=== PATIENT | male | born 1945 | race Caucasian/White ===

== ENCOUNTER 2024-11-13 16:59 | Inpatient (IN) | payer MEDICARE, BC, SELFPAY ==
[2024-11-13] VITALS (11 sets, daily range): BP systolic 113–146; BP diastolic 74–98; PULSE 71–102; RESP 16–32; TEMP 36.8–36.9; O2SAT 93–99; BMI 37.2
--- NOTE | 2024-11-13 17:20 | EKG_ITS ---
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
--- NOTE | 2024-11-13 17:20 | XR_ITS ---
Examination: AP chest single view Technique one AP portable upright chest single view Exam date and time: November 13, 2024 1803 hrs. Comparison October 31, 2011 Indications: Onset SOB today. Findings: Mild heart failure Mild to moderate enlargement cardiac contour CABG Prominent vascular congestion Consider superimposed pneumonia in the right mid and lower lung zone Impression: Mild heart failure Consider superimposed pneumonia in the right lung
--- NOTE | 2024-11-13 17:21 | EDNOTE_ITS ---
ED General RME/HPI General Chief complaint: Weakness Stated complaint: SWELLING TO LOWER EXTREMITIES Time Seen by Provider: 11/13/24 17:12 Arrival date/time: 11/13/24 16:59 RME / HPI RME / HPI narrative: 79-year-old male patient with significant history of congestive heart failure, hypertension, CAD, multiple cardiac stents, status post CABG, was sent to us by Dr. Mason, radio division lieutenant, for worsening lower extremity edema. Patient noticed worsening lower extremity edema at this time going up to the abdomen, and gained weight of more than 40 pounds of weight in couple of weeks. Patient is currently taking Lasix and new unrecalled medication for diuresis. However is not working. Saw radio division lieutenant 3 days ago tried new medication for water pill however still not working. Patient called Dr. Mason yesterday and was advised to come to the emergency room for further management and IV diuresis. Patient also complained of shortness of breath, using oxygen in the facility. Also complained of orthopnea and dyspnea on exertion. Denies any fever. Denies any chest pain. Related Data Home Medications ?Medication ?Instructions ?Recorded ?Confirmed clopidogrel 75 mg tablet (Plavix) 75 mg PO QDAY #0 tabs 01/23/16 11/13/24 apixaban 5 mg tablet (Eliquis) 5 mg PO BID 11/13/24 11/13/24 aspirin 81 mg tablet 81 mg PO QDAY 11/13/24 11/13/24 carvedilol 6.25 mg tablet (Coreg) 6.25 mg PO BID 11/13/24 11/13/24 clopidogrel 75 mg tablet (Plavix) 75 mg PO QDAY 11/13/24 11/13/24 digoxin 125 mcg (0.125 mg) tablet 125 mcg PO QDAY 11/13/24 11/13/24 folic acid 1 mg tablet 1 mg PO QDAY 11/13/24 11/13/24 furosemide 80 mg tablet (Lasix) 80 mg PO BID 11/13/24 11/13/24 oxycodone-acetaminophen 10 mg-325 1 tab PO Q6H PRN Pain 11/13/24 11/13/24 mg tablet potassium chloride 20 mEq oral 20 meq PO BID 11/13/24 11/13/24 packet sennosides 8.6 mg tablet (senna) 8.6 mg PO BID PRN Constipation 11/13/24 11/13/24 Allergies Allergy/AdvReac Type Severity Reaction Status Date / Time Penicillins Allergy Intermediate Verified 10/31/11 22:14 Review of Systems Review of Systems Narrative Review of Systems: Review of system reviewed and within normal limits except mentioned in HPI ED Exam Narrative Physical exam: VITAL SIGNS: Reviewed. GENERAL APPEARANCE: Alert and interactive, follows commands, no acute distress, HEAD AND FACE: Non-traumatic. ENT: PERRL, pink conjunctivitis, eyelid no trauma, Mucous membrane moist. NECK: Supple, nontender, no nuchal rigidity. CHEST: No tenderness, no crepitus, no paradoxical movement, no retractions. LUNGS: Clear, well ventilated, symmetric, no rales, no wheezing, no ronchi, no stridor, good breath sounds bilaterally. HEART: Regular rate, regular rhythm, no murmur, no gallops. ABDOMEN: Soft, positive bowel sounds, nondistended, no guarding, nontender, no rebound, no masses,+ mid abdomen edema noted also RECTAL: Deferred. GENITAL: Deferred. NEUROLOGICAL: Gross motor function intact sensory function intact, Appropriate for age. MUSCULOSKELETAL: low back nontender, full range of motion. EXTREMITIES: +3 bilateral lower extremity edema full range of motion. Right lower foot with dressing SKIN: Color pink, dry, no rash, no lacerations, no abrasions, no contusions. LYMPHATICS: Deferred. Course Quality Measures none Orders Category Date Time Status COVID-19 Screening Questionnaire NOW Care 11/13/24 19:48 Active Decision to Admit X1 Care 11/13/24 19:47 Active EKG (ED ONLY) *Do not use* NOW Care 11/13/24 17:21 Completed Consult to Nephrology Stat Cons 11/13/24 17:49 Ordered EKG (ED Only) Stat Exams 11/13/24 17:20 Draft XR chest 1V Stat Exams 11/13/24 17:20 Completed B-Type Natriuretic Peptide Stat Lab 11/13/24 17:32 Completed CBC Stat Lab 11/13/24 17:32 Completed Comprehensive Metabolic Panel Stat Lab 11/13/24 17:32 Completed Partial Thromboplastin Time Stat Lab 11/13/24 17:32 Completed Prothrombin Time with INR Stat Lab 11/13/24 17:32 Completed Troponin I Stat Lab 11/13/24 17:32 Completed Urinalysis, C/S if Indicated Stat Lab 11/13/24 17:46 Completed Container,Empty 50 ml [Empty Container Bag 50 ml] 1 bag Med 11/13/24 17:48 Active Bumetanide Inj [Bumex Inj] 20 mg IV 1 mg/hr Vital Signs Vital signs: Vital Signs Temperature 98.2 F 11/13/24 17:35 Pulse Rate 102 H 11/13/24 17:35 Respiratory Rate 16 11/13/24 17:35 Blood Pressure 120/98 H 11/13/24 17:35 Pulse Oximetry (%) 94 L 11/13/24 17:35 Oxygen Delivery Method Room Air 11/13/24 17:35 Oxygen Flow Rate 2 11/13/24 17:35 Fraction of Inspired Oxygen 98 11/13/24 17:35 [facility] Patient data External records reviewed:: None Clinical information provided by:: patient Social determinants that could affect healthcare access:: none Patient has the following chronic illnesses:: Congestive heart failure hypertension, CAD multiple stents status post CABG How is presenting disease/condition affected by chronic disease/condition?: e xacerbated by Evaluation data The following diagnostics were reviewed and interpreted by me:: lab results, radiology exam(s) and EKG tracing(s) Lab and/or radiology exams considered but not ordered:: None Interpretation Summary: EKG showed A-fib, ventricular rate of 87 bpm, no ST segment elevation depression noted. Chest x-ray showed mild heart failure, with possible superimposed pneumonia. Laboratory workup all came back unremarkable except for elevated BNP of 1350, creatinine was also noted to be slightly elevated 1.4 BUN of 30. Medications Medications considered but not ordered:: None Medication administrations:: Medication Administration History Bumetanide 20 mg/ IV (Miscellaneous Supplies) 80 mls @ 4 mls/hr IV .Q20H MARIO Stop: 11/14/24 13:47 Last Admin: 11/13/24 18:18 Dose: 1 mg/hr, 4 mls/hr Documented By: JACKSON Bumex IV drip Consultations Consultation(s) initiated? (list below): Yes Consultation #1 (Physician, Specialty, Details): Dr. Mason, radio division lieutenant, thank you Dr. Mason Diagnosis Differential Diagnosis ED Complaint MDM: Congestive heart failure, exacerbation, pneumonia, shortness of breath, lym Most likely diagnosis given after review of the tests above:: Exacerbation of congestive heart failure Admission Indicated Admission indicated?: indicated Explain why admission is indicated or not indicated:: Patient is to be admitted for further management Admission Request Was there a request for admission?: Yes Admission Attestation Admission request attestation: Discussed case with [resident Dr. El] from Hospitalist service regarding admission. Discussed patients ED course, exam findings, labs, and radiology results. The Hospitalist [agrees] to accept the patient for admission. Disposition Plan Disposition Plan: Admit Medical Decision Making MDM Narrative MDM Narrative: 79-year-old male patient with significant history of congestive heart failure, hypertension, CAD, multiple cardiac stents, status post CABG, was sent to us by Dr. Mason, radio division lieutenant, for worsening lower extremity edema. Patient noticed worsening lower extremity edema at this time going up to the abdomen, and gained weight of more than 40 pounds of weight in couple of weeks. Patient is currently taking Lasix and new unrecalled medication for diuresis. However is not working. Saw radio division lieutenant 3 days ago tried new medication for water pill however still not working. Patient called Dr. Mason yesterday and was advised to come to the emergency room for further management and IV diuresis. Patient also complained of shortness of breath, using oxygen in the facility. Also complained of orthopnea and dyspnea on exertion. Denies any fever. Denies any chest pain. I spoke with Dr. Mason, patient's radio division lieutenant, who told me to admit the patient under hospitalist, comanagement with him, and start IV Bumex. Differential Diagnosis Differential Diagnosis: Congestive heart failure, exacerbation, pneumonia, shortness of breath, lym Lab Data 11/13/24 17:32 11/13/24 17:32 Labs: Lab Results 11/13/24 11/13/24 Range/Units 17:32 17:46 WBC 6.8 (3.8-10.6) Thou/mm3 RBC 4.39 L (4.50-5.90) Miln/mm3 Hgb 11.8 L (13.5-16.0) g/dL Hct 37.3 L (41.0-53.0) % MCV 85 (80-100) fL MCH 26.9 (25.0-35.0) pg MCHC 31.6 (31.0-37.0) g/dl RDW Std Deviation 60.1 H (35.1-43.9) fL Plt Count 196 (140-440) Thou/mm3 Neut % (Auto) 69 (37-80) % Lymph % (Auto) 17 (10-50) % [place] % (Auto) 10 (0-12) % Eos % (Auto) 4 (0-10) % Baso % (Auto) 1 (0-2.5) % Neut # (Auto) 4.6 (1.8-7.7) Thou/mm3 Lymph # (Auto) 1.1 (1.0-4.8) Thou/mm3 [place] # (Auto) 0.7 (0.0-0.8) Thou/mm3 Eos # (Auto) 0.3 (0.0-0.5) Thou/mm3 Baso # (Auto) 0.1 (0.0-0.2) Thou/mm3 Immature Gran # (Auto) 0.02 H (0.00-0.00) Thou/mm3 Absolute Nucleated RBC 0.00 (0.00-0.00) Thou/mm3 Immature Gran % 0 (0-0) % Nucleated RBC % 0 (0) /100 WBC PT 14.3 H (9.0-12.2) Seconds INR 1.3 (0.9-1.3) APTT 39.8 H (22.0-36.0) Seconds Sodium 135 L (136-145) mMol/L Potassium 4.0 (3.4-5.1) mMol/L Chloride 100 (98-107) mMol/L Carbon Dioxide 24.4 (20.0-31.0) mMol/L Anion Gap 11 (7-16) BUN 30 H (9-23) mg/dL Creatinine 1.4 H (0.6-1.3) mg/dL Estim Creat Clear Calc 53.4 L (>60) mL/min eGFR 52 L (60 - ) See Note BUN/Creatinine Ratio 21 H (12-20) Ratio Glucose 156 H (74-106) mg/dL Calculated Osmolality 279 (275-295) Calcium 8.6 (8.3-10.6) mg/dL Corrected Calcium 8.7 (8.5-10.1) mg/dL Total Bilirubin 0.6 (0.3-1.2) mg/dL AST 20 (0-34) U/L ALT 11 (10-49) U/L Alkaline Phosphatase 95 (46-116) U/L Troponin I 0.035 (0.0-0.045) ng/mL B-Natriuretic Peptide 1350 H* (0-100) pg/mL Total Protein 6.1 (5.7-8.2) gm/dL Albumin 3.9 (3.4-4.8) gm/dL Globulin 2.2 L (2.3-3.5) gm/dL Albumin/Globulin Ratio 1.8 (1.2-2.2) Ur Collection Type Clean Catch Urine Color Lt-Green A (Lt Yel-Yel) Urine Clarity Turbid A (Clear/Hazy) Urine pH 5.5 (5.0-7.0) Ur Specific Lucas 1.021 (1.001-1.035) Urine Protein Negative (Neg - Trace) Urine Glucose (UA) 4+ A (Negative) Urine Ketones Negative (Negative) Urine Blood Negative (Negative) Urine Nitrite Negative (Negative) Urine Bilirubin Negative (Negative) Urine Urobilinogen (Auto) Negative (0.0-1.0) mg/dL Ur Leukocyte Esterase Negative (Negative) Urine RBC 3 (0-3) /hpf Urine WBC 2 (0-5) /hpf Ur Squamous Epith Cells 0 (0-5) /hpf Urine Bacteria None (None) Ur Culture Indicated? Not Indicated Discharge Plan Prescriptions/Referrals Prescriptions/Med Rec: No Action clopidogrel [Plavix] 75 MG tablet 75 mg PO QDAY Qty: 0 potassium chloride 20 mEq Packet 20 meq PO BID oxycodone-acetaminophen 10-325 mg Tablet 1 tab PO Q6H PRN (Reason: Pain) furosemide [Lasix] 80 mg Tablet 80 mg PO BID folic acid 1 mg Tablet 1 mg PO QDAY aspirin 81 mg Tablet 81 mg PO QDAY digoxin 125 mcg (0.125 mg) Tablet 125 mcg PO QDAY sennosides [senna] 8.6 mg Tablet 8.6 mg PO BID PRN (Reason: Constipation) carvedilol [Coreg] 6.25 mg Tablet 6.25 mg PO BID Rx Instructions: must administer with a meal/food clopidogrel [Plavix] 75 mg Tablet 75 mg PO QDAY Eliquis 5 mg Tablet 5 mg PO BID Referrals: Candy Clarke FNP [Primary Care Provider] - In 1 week Problem List Clinical Impression: Acute exacerbation of CHF (congestive heart failure) Patient/Caregiver Discharge Instructions Print Language: [place]
[2024-11-13 17:46] LABS: Basophils # (Auto) 0.1 Thou/mm3 (0.0-0.2); Basophils % (Auto) 1 % (0-2.5); Eosinophils # (Auto) 0.3 Thou/mm3 (0.0-0.5); Eosinophils % (Auto) 4 % (0-10); Hematocrit 37.3 % (41.0-53.0); Hemoglobin 11.8 g/dL (13.5-16.0); Immature Granulocytes % (Auto) 0 % (0-0); Immature Granulocytes Auto 0.02 Thou/mm3 (0.00-0.00); Lymphocytes # (Auto) 1.1 Thou/mm3 (1.0-4.8); Lymphocytes % (Auto) 17 % (10-50); Mean Corpuscular HGB Conc 31.6 g/dl (31.0-37.0); Mean Corpuscular Hemoglobin 26.9 pg (25.0-35.0); Mean Corpuscular Volume 85 fL (80-100); Monocytes # (Auto) 0.7 Thou/mm3 (0.0-0.8); Monocytes % (Auto) 10 % (0-12); Neutrophils # (Auto) 4.6 Thou/mm3 (1.8-7.7); Neutrophils % (Auto) 69 % (37-80); Nucleated Red Blood Cell % 0 /100 WBC (0); Platelet Count 196 Thou/mm3 (140-440); RDW Standard Deviation 60.1 fL (35.1-43.9); Red Blood Count 4.39 Miln/mm3 (4.50-5.90); White Blood Count 6.8 Thou/mm3 (3.8-10.6)
[2024-11-13 17:51] LABS: Collection Type, Urine Clean Catch; Squamous Epithelial Cell,Urine 0 /hpf (0-5)
[2024-11-13 18:02] LABS: INR 1.3 (0.9-1.3); Partial Thromboplastin Time 39.8 Seconds (22.0-36.0); Prothrombin Time 14.3 Seconds (9.0-12.2)
[2024-11-13 18:16] LABS: Alanine Aminotransferase 11 U/L (10-49); Albumin, Serum 3.9 gm/dL (3.4-4.8); Albumin/Globulin Ratio 1.8 (1.2-2.2); Alkaline Phosphatase 95 U/L (46-116); Anion Gap 11 (7-16); Aspartate Amino Transferase 20 U/L (0-34); BUN/Creatinine Ratio 21 Ratio (12-20); Bilirubin,Total 0.6 mg/dL (0.3-1.2); Blood Urea Nitrogen 30 mg/dL (9-23); Calcium 8.6 mg/dL (8.3-10.6); Calcium (Corrected) 8.7 mg/dL (8.5-10.1); Carbon Dioxide 24.4 mMol/L (20.0-31.0); Chloride 100 mMol/L (98-107); Creatinine (Component) 1.4 mg/dL (0.6-1.3); Estimated Creatinine Clearance 53.4 mL/min (>60); Globulin 2.2 gm/dL (2.3-3.5); Glucose 156 mg/dL (74-106); Osmolality,Calculated 279 (275-295); Sodium 135 mMol/L (136-145); Total Protein 6.1 gm/dL (5.7-8.2); Troponin I 0.035 ng/mL (0.0-0.045); eGFR 52 See Note
[2024-11-13 18:18] LABS: B-Type Natriuretic Peptide 1350 pg/mL (0-100)
[2024-11-13] MEDS: BUMETANIDE INJ 20 MG in CONTAINER,EMPTY 50 ML 1 BAG 4 MG IV (18:18)
--- NOTE | 2024-11-13 18:27 | PC.NURSE ---
PATIENT ARRIVED ED VIA EMS FOR EVALUATION OF LOWER EXTREMITY SWELLING. PATIENT HAS BEEN IN REHAB IN [place] FOR APPROX 2 MONTHS SECONDARY TO RECENT SURGERY ON RIGHT FOOT. PATIENT STATES HE HAS SIGNIFICANT CARDIAC HISTORY AND HAS BEEN TREATED BY DR. BASHIR AND REQUESTED TO COME TO [facility] FOR TREATMENT. PATIENT DENIES COMPLAINT OF PAIN AT TIME OF ARRIVAL. PATIENT WITH CALL LIGHT WITHIN REACH AT THIS TIME
[2024-11-13 18:32] LABS: Bilirubin,Urine Negative (Negative); Blood,Urine Negative (Negative); Clarity,Urine Turbid (Clear/Hazy); Color,Urine Lt-Green (Lt Yel-Yel); Culture Indicated,Urine Not Indicated; Glucose, Urine 4+ (Negative); Ketones,Urine Negative (Negative); Leukocyte Esterase,Urine Negative (Negative); Nitrite,Urine Negative (Negative); PH,Urine 5.5 (5.0-7.0); Protein,Urine Negative (Neg - Trace); RBC,Urine 3 /hpf (0-3); Specific Gravity,Urine 1.021 (1.001-1.035); Urobilinogen,Urine Negative mg/dL (0.0-1.0); WBC,Urine 2 /hpf (0-5)
--- NOTE | 2024-11-13 19:56 | PC.NURSE ---
Admit ED with pt now. pt is alert and GCS is 15.
--- NOTE | 2024-11-13 20:02 | PC.NURSE ---
Pt states bilateral lower extremity swewlling and pain to L leg.
--- NOTE | 2024-11-13 20:24 | XR_ITS ---
Examination: Venous duplex lower extremity sonogram, bilateral. 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 B-mode/2-D grayscale imaging of vascular structures and Doppler spectral analysis (waveforms) and color performed Both legs are examined. Findings: Deep venous systems do not demonstrate abnormal echogenicity. No visualization distal right superficial femoral and distal left superficial femoral vein All visualized deep veins exhibit compressibility. All visualized deep veins exhibit augmentation. Impression: Limited study with no DVT demonstrated
--- NOTE | 2024-11-13 20:50 | ESHP_ITS ---
Documentation for date of: 11/13/24 [facility] History of Present Illness History of present illness: The patient is a 79-year-old male with a past medical history of hypertension, diabetes, CHF, CKD stage IIIa, A-fib on Eliquis and digoxin presenting to the ED on 11/13/2024 with a 3week history of progressive bilateral pitting edema. Per the patient, he was in usual state of health until about 2 months ago when he had cardiac catheterization done and some stents placed by patient insurance clerk Dr. Mason after which she was discharged, to rehab. In the rehab, patient had scraped his right foot and had a wound which developed into an ulcer and he had wound care following. However, due to complications patient had swelling in his right leg after which a stent was placed for peripheral artery disease. Following this, patient did have amputation of 2 toes done. He continues to have swelling in the right lower extremity as well as the left and his dose of Lasix was increased from 40 mg to 80 mg, however he continued to progressively have edema extending to his lower abdomen and gained 40 pounds. The patient presented to [facility] a week ago and was given 160 mg of Lasix with a which she was discharged back to [facility] to continue on his home dose, however he has progressively worsened. He also endorses exertional dyspnea, with shortness of breath moving from his wheelchair to the bed and sometimes at rest. He uses 2 L of oxygen in the facility. As he got worse, cardiology recommended for him to present to the ED for aggressive diuresis. ED course: In the ED, patient was afebrile, normotensive and saturating 94% on room air was placed on 2 L of oxygen. Chest x-ray showed prominent vascular congestion and possibility of superimposed pneumonia and EKG showed A-fib rate controlled with right bundle branch block. CBC was only significant for anemia of 11.8, PT was elevated at 14.3 and a PTT of 39.8. CMP-sodium 135 K4 CL 100 CO2 24.4 BUN 30 CR 1.4 EGFR 52 glucose 156. BNP 1359 UA showed green urine 4+ glucose, otherwise unremarkable. The patient was started on IV Bumex drip and has been admitted for acute decompensated heart disease. Review of Systems Review of Systems Narrative Review of Systems: GENERAL: Denies fevers/chills or diaphoresis. HEENT: Denies headache or visual/hearing changes. Denies nasal discharge. NEURO: Denies unusual weakness or difficulty speaking. CARDIO: Denies chest pain or palpitations. PULM: Admits SOB on exertion, denies coughing, or wheezing. GI: Denies abdominal pain, N/V/C/D/reflux/gas, bright red blood per rectum or melena. Reports having BMs. URO: Denies burning/itching/pain/urinary changes. MSK/EXT/SKIN: Denies joint/skeletal/muscle pain, issues/changes in upper or lower extremities, itchiness, or superficial pain. PSYCH: Cooperative, pleasant mood & affect. 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 Eyes open, symmetrical, & clear CARDIO: No chest pain on palpation. Heart RRR, no obvious murmurs PULM: No noted coughing/dyspnea. Minimal crackles bilaterally, nasal cannula- 2L GI: Abdomen soft, mildly distended, edema in the lower part, no pain on palpation. BSx4 URO/SANE RN:: No further abnormalities noted. SKIN/MSK/EXT: Bilateral pitting edema 4+, right foot bandaged with clean dressing s/p toes amputation Results: Labs 11/14/24 04:37 11/14/24 04:37 Labs: Short CBC 11/13/24 Range/Units 17:32 WBC 6.8 (3.8-10.6) Thou/mm3 Hgb 11.8 L (13.5-16.0) g/dL Hct 37.3 L (41.0-53.0) % Plt Count 196 (140-440) Thou/mm3 BMP 11/13/24 17:32 Sodium 135 L Potassium 4.0 Chloride 100 Carbon Dioxide 24.4 BUN 30 H Creatinine 1.4 H Glucose 156 H Calcium 8.6 Cardiac Enzymes 11/13/24 Range/Units 17:32 Troponin I 0.035 (0.0-0.045) ng/mL Liver Function 11/13/24 Range/Units 17:32 Total Bilirubin 0.6 (0.3-1.2) mg/dL AST 20 (0-34) U/L ALT 11 (10-49) U/L Alkaline Phosphatase 95 (46-116) U/L Albumin 3.9 (3.4-4.8) gm/dL Urine 11/13/24 Range/Units 17:46 Urine Color Lt-Green A (Lt Yel-Yel) Urine Clarity Turbid A (Clear/Hazy) Urine pH 5.5 (5.0-7.0) Ur Specific [place] 1.021 (1.001-1.035) Urine Protein Negative (Neg - Trace) Urine Glucose (UA) 4+ A (Negative) Quality Measures Quality Measures none Advance care planning discussed with:: patient Medications Home Medications and Allergies Home Medications ?Medication ?Instructions ?Recorded ?Confirmed ?Type clopidogrel 75 mg tablet (Plavix) 75 mg PO QDAY #0 tabs 01/23/16 11/13/24 History apixaban 5 mg tablet (Eliquis) 5 mg PO BID 11/13/24 11/13/24 History aspirin 81 mg tablet 81 mg PO QDAY 11/13/24 11/13/24 History carvedilol 6.25 mg tablet (Coreg) 6.25 mg PO BID 11/13/24 11/13/24 History clopidogrel 75 mg tablet (Plavix) 75 mg PO QDAY 11/13/24 11/13/24 History digoxin 125 mcg (0.125 mg) tablet 125 mcg PO QDAY 11/13/24 11/13/24 History folic acid 1 mg tablet 1 mg PO QDAY 11/13/24 11/13/24 History furosemide 80 mg tablet (Lasix) 80 mg PO BID 11/13/24 11/13/24 History oxycodone-acetaminophen 10 mg-325 1 tab PO Q6H PRN Pain 11/13/24 11/13/24 History mg tablet potassium chloride 20 mEq oral 20 meq PO BID 11/13/24 11/13/24 History packet sennosides 8.6 mg tablet (senna) 8.6 mg PO BID PRN Constipation 11/13/24 11/13/24 History Allergies Allergy/AdvReac Type Severity Reaction Status Date / Time acetaminophen [From Vicodin] Allergy Severe Confusion Verified 11/14/24 03:33 cephalexin [From Keflex] Allergy Severe Hives Verified 11/14/24 03:33 hydrocodone [From Vicodin] Allergy Severe Confusion Verified 11/14/24 03:33 Penicillins Allergy Intermediate passout Verified 11/14/24 03:33 Visit Medications Acetaminophen (Acetaminophen 325 Mg Tablet) 650 mg PO Q6H PRN PRN Reason: Pain 1-3 or Fever >100.3 Stop: 12/13/24 20:18 Apixaban (Apixaban 2.5 Mg Tablet) 5 mg PO BID [facility] Stop: 12/13/24 20:59 Aspirin (Aspirin Ec 81 Mg Tabec) 81 mg PO QDAY [facility] Stop: 12/14/24 08:59 Carvedilol (Carvedilol 3.125 Mg Tablet) 6.25 mg PO BID [facility] Stop: 12/13/24 20:59 Clopidogrel Bisulfate (Clopidogrel Bisulfate 75 Mg Tablet) 75 mg PO QDAY [facility] Stop: 12/14/24 08:59 Dextrose (Dextrose 50%-Water Inj 50 Ml Syringe) 25 ml IV Q15MIN PRN PRN Reason: BG 50-70 responsive npo pt Stop: 12/13/24 20:32 Dextrose (Dextrose 50%-Water Inj 50 Ml Syringe) 50 ml IV Q15MIN PRN PRN Reason: BG <50 OR BG <70 & pt unresponsive Stop: 12/13/24 20:32 Glucagon (Glucagon Inj 1 Mg Vial) 1 mg IM Q15MIN PRN PRN Reason: BG <70, and no IV access Bumetanide 20 mg/ IV (Miscellaneous Supplies) 80 mls @ 2 mls/hr IV .Q24H [facility] Stop: 11/14/24 20:38 Insulin Human Lispro (Insulin Lispro (Admelog) 1 Unit/0.01 Ml Unit) 0 unit SC [facility]; Protocol Stop: 12/14/24 07:29 Ondansetron HCl (Ondansetron Inj 2 Mg/Ml Inj 2 Ml) 4 mg IV Q6H PRN; Protocol PRN Reason: NAUSEA OR VOMITING Stop: 12/13/24 20:18 Potassium Chloride (Potassium Chloride 10% 20 Meq/15 Ml Udc) 20 meq PO BID [facility] Stop: 12/13/24 20:59 Sennosides (Senna Tablet) 1 tab PO BID PRN; Protocol PRN Reason: Constipation Stop: 12/13/24 20:28 Discontinued Medications Bumetanide (Bumetanide Inj 0.25 Mg/Ml Vial 4 Ml) 2 mg IVP X1 ONE Stop: 11/13/24 20:39 Bumetanide 20 mg/ IV (Miscellaneous Supplies) 80 mls @ 4 mls/hr IV .Q20H [facility] Stop: 11/14/24 13:47 Last Admin: 11/13/24 18:18 Dose: 1 mg/hr, 4 mls/hr Assessment & Plan Assessment Summary: The patient is a 79-year-old male with a past medical history of hypertension, diabetes, CHF, CKD stage IIIa, A-fib on Eliquis and digoxin presented to the ED on 11/13/2022 for 3-week history of progressive bilateral pitting edema. He is being admitted for management of acute decompensated heart disease. #Acute decompensated heart disease #Chronic hypoxic respiratory failure #History of CHF unknown EF #Bilateral pitting edema The patient was with a 3-week history of progressive bilateral pitting edema, had his dose of Lasix increased from 40 mg to 80 mg without any significant improvement. In the last 3 weeks, he has gained about 40 pounds. He presented to [facility] a week ago and was given 160 mg of Lasix and discharged back to continue on home dose however edema is only getting worse. He also endorses exertional dyspnea with shortness of breath moving from the chair to the bed and sometimes at rest but denies cough or chest pain. The patient uses 2 L of oxygen facility and is not requiring any more in the ED. Labs significant for BNP of 1350, BUN of 30 and creatinine of 1.4. In the ED, patient insurance clerk Dr. Mason was consulted and recommended for the patient to be admitted for aggressive diuresis and started on Bumex drip Plan: -Admit to telemetry -IV Bumex 2mg and then, Continue IV Bumex 0.5 mg/h -Fluid restriction -Strict I&O's and daily weights -Replete potassium as necessary -Echocardiogram -Human Resources Office Manager consulted, appreciate recommendations #History of diabetes The patient has a history of diabetes, last A1c done 4 months ago was 6.1. He uses insulin and Jardiance at home and Lantus 20units Admitting BS- 156 Plan: -Insulin Lantus 10 units -Sliding scale -Follow-up A1c -Hypoglycemic protocols in place #History of A-fib Patient has a history of A-fib and is on Coreg, digoxin and Eliquis 5mg BID. EKG on admission showed AFib, rate controlled. Plan: -Resume Eliquis -Digoxin levels and restart in the AM #History of CKD, stage IIIa The patient has a history of CKD and being followed by neurologist Dr. Park. On admission, BUN 30 and creatinine 1.4 with EGFR 52. Note: Patient takes methylene blue and it makes his urine green. Plan: -Continue diuresis -Avoid nephrotoxic medications -Renally dose medications -Continue to monitor CMP #History of hypertension #History of CAD status post stent Patient has a history of hypertension and is on Coreg 3.125 mg. He is also on aspirin and Plavix for CAD status post stents about 2 months ago Plan: -Resume home meds Health maintenance: Dispo: Tele Diet: Cardiac DVT: Eliquis Bain: None Lines: Peripheral Med Rec: Pending, f/u PT: Not ordered Code: Full Case was discussed with attending physician, Dr Sienna Salas MD PGY-1 Attending Provider Attestation/Addendum Face to face evaluation was performed by me. I have personally seen and examined the patient. I discussed the assessment and plan with the entire medicine team. I reviewed available medical records, imaging studies, laboratory results. I agree with the above subjective data, objective findings, assessment and plan except as corrected by me or noted below Decompensated heart failure unknown left ventricular ejection fraction, acute on chronic. Pulmonary edema CKD stage III volume overload history of coronary disease, Status post stenting -Bumex drip, give bolus of 2 mg then decrease rate to 0.5 mg/hour, monitor electrolytes and replace potassium to keep it above 4, cardiology consultation, echo DVT prophylaxis covered with apixaban already Obtain digoxin level if within therapeutic range can resume home digoxin as well Monitor labs vitals and clinical course closely
[2024-11-13 21:16] LABS: Glucose Estimated Average 114 mg/dL (80-131); Hemoglobin A1C 5.6 % Hgb (4.8-6.0)
[2024-11-13] MEDS: oxyCODONE/APAP 5/325 TABLET 2 TAB PO (22:18)
[2024-11-13] MEDS: carVEDILOL 3.125 MG TABLET 6.25 MG PO (22:19)
[2024-11-13] MEDS: APIXABAN 2.5 MG TABLET 5 MG PO (22:20)
[2024-11-13] MEDS: BUMETANIDE INJ 0.25 MG/ML VIAL 4 ML 2 MG IVP (22:21)
[2024-11-13] MEDS: POTASSIUM CHLORIDE 10% 20 MEQ/15 ML UDC PO (22:22)
[2024-11-13] MEDS: BUMETANIDE INJ 20 MG in CONTAINER,EMPTY 50 ML 1 BAG IV (22:30)
[2024-11-14] VITALS (15 sets, daily range): BP systolic 104–135; BP diastolic 62–88; PULSE 74–141; RESP 9–28; TEMP 35.9–36.3; O2SAT 93–99; BMI 37.2
--- NOTE | 2024-11-14 00:29 | PC.NURSE ---
pt broughthis own Cpap and placed it on himself.
--- NOTE | 2024-11-14 03:20 | PC.NURSE ---
Report called to Jose FISHER.
--- NOTE | 2024-11-14 03:38 | PC.NURSE ---
pt taken to Rm 266 on cardioac monitor.Pt in NAD.
[2024-11-14] MEDS: oxyCODONE/APAP 5/325 TABLET 2 TAB PO ×3 (04:38→17:33)
[2024-11-14 05:48] LABS: Basophils # (Auto) 0.1 Thou/mm3 (0.0-0.2); Basophils % (Auto) 1 % (0-2.5); Eosinophils # (Auto) 0.2 Thou/mm3 (0.0-0.5); Eosinophils % (Auto) 3 % (0-10); Hemoglobin 11.3 g/dL (13.5-16.0); Immature Granulocytes % (Auto) 0 % (0-0); Immature Granulocytes Auto 0.03 Thou/mm3 (0.00-0.00); Lymphocytes % (Auto) 15 % (10-50); Mean Corpuscular HGB Conc 31.4 g/dl (31.0-37.0); Mean Corpuscular Hemoglobin 26.8 pg (25.0-35.0); Mean Corpuscular Volume 86 fL (80-100); Monocytes # (Auto) 0.8 Thou/mm3 (0.0-0.8); Monocytes % (Auto) 12 % (0-12); Neutrophils # (Auto) 4.7 Thou/mm3 (1.8-7.7); Neutrophils % (Auto) 69 % (37-80); Nucleated Red Blood Cell % 0 /100 WBC (0); Platelet Count 221 Thou/mm3 (140-440); Red Blood Count 4.21 Miln/mm3 (4.50-5.90); White Blood Count 6.8 Thou/mm3 (3.8-10.6)
[2024-11-14 06:38] LABS: Alkaline Phosphatase 83 U/L (46-116); Anion Gap 11 (7-16); Aspartate Amino Transferase 12 U/L (0-34); BUN/Creatinine Ratio 24 Ratio (12-20); Bilirubin,Total 0.8 mg/dL (0.3-1.2); Blood Urea Nitrogen 31 mg/dL (9-23); Calcium 8.8 mg/dL (8.3-10.6); Calcium (Corrected) 8.8 mg/dL (8.5-10.1); Carbon Dioxide 29.2 mMol/L (20.0-31.0); Cardiac Risk Estimate 2.7 RATIO (4.0-6.7); Chloride 100 mMol/L (98-107); Cholesterol 130 mg/dL (132-200); Creatinine (Component) 1.3 mg/dL (0.6-1.3); Estimated Creatinine Clearance 57.5 mL/min (>60); Glucose 155 mg/dL (74-106); HDL Cholesterol 48 mg/dL (40-60); LDL Cholesterol,Calculated 63 mg/dL (0-130); Magnesium 2.4 mg/dL (1.6-2.6); Osmolality,Calculated 288 (275-295); Potassium 3.1 mMol/L (3.4-5.1); Sodium 140 mMol/L (136-145); Thyroid Stimulating Hormone 2.04 uIU/mL (0.55-4.78); Triglycerides 95 mg/dL (30-150); eGFR 57 See Note
[2024-11-14 06:42] LABS: Alanine Aminotransferase 9 U/L (10-49)
[2024-11-14] MEDS: INSULIN LISPRO (AdmeLOG) 1 UNIT/0.01 ML UNIT SC ×3 (07:39→17:33)
[2024-11-14] MEDS: POTASSIUM CHLORIDE 10% 20 MEQ/15 ML UDC PO ×3 (08:37→20:50)
[2024-11-14] MEDS: CLOPIDOGREL BISULFATE 75 MG TABLET PO (08:37)
[2024-11-14] MEDS: APIXABAN 2.5 MG TABLET 5 MG PO ×2 (08:37→20:50)
[2024-11-14] MEDS: ASPIRIN EC 81 MG TABEC PO (08:37)
[2024-11-14] MEDS: carVEDILOL 3.125 MG TABLET 6.25 MG PO (08:37)
--- NOTE | 2024-11-14 09:52 | PC.NURSE ---
Notified that patient stated he does not want to take the potassium pills and would rather have the liquid potassium if possible. Provider acknowledged and stated she would change order.
[2024-11-14] MEDS: POTASSIUM CHLORIDE 10% 20 MEQ/15 ML UDC 40 MEQ PO (10:01)
--- NOTE | 2024-11-14 10:06 | ESCONSULT_ITS ---
HPI Data of Consult Requesting Physician: Chinedu El MD Primary Care Provider: Candy Clarke, [employer] MANAGER [facility] [facility] Consult Narrative History of present illness: This is a 79-year-old male with a past medical history of hypertension, diabetes, CHF, CKD stage IIIa, A-fib s/p CABG x3 . Sever PVD pt is know to me form out pt f/u pt had prior heart catheterization few months ago which showed all veingrafts occluded , LAGUERRE patent but distal LAD after the anastomosis diffusely diseased , EF 30% Pt had sever PVD with R SFA occludion - underwent SFA stenting and also amputation of the R toes pt was complaining b/l leg edema and sob found to be in decompensated CHF - oral diuretics not effective admitted for IV diuretics Pt reveived over night IV drip bumex and diuresed almost 3 L of uine pt denies chest pain cc:: cc: Chinedu El MD Meds Home Medications and Allergies Home Medications ?Medication ?Instructions ?Recorded ?Confirmed ?Type clopidogrel 75 mg tablet (Plavix) 75 mg PO QDAY #0 tabs 01/23/16 11/13/24 History apixaban 5 mg tablet (Eliquis) 5 mg PO BID 11/13/24 11/13/24 History aspirin 81 mg tablet 81 mg PO QDAY 11/13/24 11/13/24 History carvedilol 6.25 mg tablet (Coreg) 6.25 mg PO BID 11/13/24 11/13/24 History clopidogrel 75 mg tablet (Plavix) 75 mg PO QDAY 11/13/24 11/13/24 History digoxin 125 mcg (0.125 mg) tablet 125 mcg PO QDAY 11/13/24 11/13/24 History folic acid 1 mg tablet 1 mg PO QDAY 11/13/24 11/13/24 History furosemide 80 mg tablet (Lasix) 80 mg PO BID 11/13/24 11/13/24 History oxycodone-acetaminophen 10 mg-325 1 tab PO Q6H PRN Pain 11/13/24 11/13/24 History mg tablet potassium chloride 20 mEq oral 20 meq PO BID 11/13/24 11/13/24 History packet sennosides 8.6 mg tablet (senna) 8.6 mg PO BID PRN Constipation 11/13/24 11/13/24 History Allergies Allergy/AdvReac Type Severity Reaction Status Date / Time acetaminophen [From Vicodin] Allergy Severe Confusion Verified 11/14/24 03:33 cephalexin [From Keflex] Allergy Severe Hives Verified 11/14/24 03:33 hydrocodone [From Vicodin] Allergy Severe Confusion Verified 11/14/24 03:33 Penicillins Allergy Intermediate passout Verified 11/14/24 03:33 Exam Vital Signs Temp Pulse Resp BP Pulse Ox O2 Del Method O2 Flow Rate 97.3 F 87 17 121/75 93 L Nasal Cannula 2 11/14/24 08:00 11/14/24 09:56 11/14/24 09:56 11/14/24 08:37 11/14/24 09:56 11/14/24 08:00 11/14/24 09:56 FiO2 98 11/13/24 17:35 Routine HEENT Exam Head: Present normocephalic and atraumatic Eye: Present EOMI and PERRL ENT: Present mucous membranes moist Routine Neck Exam Neck: Present supple and trachea midline Routine Respiratory Exam Respiratory: Present chest non-tender, lungs clear, normal breath sounds and no resp distress Routine Cardiovascular Exam Cardiovascular: Present RRR Routine Abdominal Exam Abdominal: Present soft and normoactive bowel sounds Routine Extremities Exam Extremities: Present full ROM Routine Skin Exam Skin: Present intact, dry and warm Routine Neurological Exam Neurological: Present alert, oriented X3 and CN II-XII intact Routine Psychiatric Exam Psychiatric: Present normal affect and normal thought process Results Labs 11/14/24 04:37 11/14/24 04:37 Labs: Short CBC 11/13/24 11/14/24 Range/Units 17:32 04:37 WBC 6.8 6.8 (3.8-10.6) Thou/mm3 Hgb 11.8 L 11.3 L (13.5-16.0) g/dL Hct 37.3 L 36.0 L (41.0-53.0) % Plt Count 196 221 (140-440) Thou/mm3 BMP 11/13/24 11/14/24 17:32 04:37 Sodium 135 L 140 Potassium 4.0 3.1 L D Chloride 100 100 Carbon Dioxide 24.4 29.2 BUN 30 H 31 H Creatinine 1.4 H 1.3 Glucose 156 H 155 H Calcium 8.6 8.8 Cardiac Enzymes 11/13/24 Range/Units 17:32 Troponin I 0.035 (0.0-0.045) ng/mL Liver Function 11/13/24 11/14/24 Range/Units 17:32 04:37 Total Bilirubin 0.6 0.8 (0.3-1.2) mg/dL AST 20 12 (0-34) U/L ALT 11 9 L (10-49) U/L Alkaline Phosphatase 95 83 (46-116) U/L Albumin 3.9 4.0 (3.4-4.8) gm/dL Urine 11/13/24 Range/Units 17:46 Urine Color Lt-Green A (Lt Yel-Yel) Urine Clarity Turbid A (Clear/Hazy) Urine pH 5.5 (5.0-7.0) Ur Specific [place] 1.021 (1.001-1.035) Urine Protein Negative (Neg - Trace) Urine Glucose (UA) 4+ A (Negative) Assessment and Plan Assessment and plan (1) Acute exacerbation of CHF (congestive heart failure): Status: Acute (2) Diabetes 1.5, managed as type 2: Status: Acute (3) CAD (coronary artery disease): Status: Acute (4) S/P CABG x 3: Status: Acute (5) PVD (peripheral vascular disease): Status: Acute Additional Assessment & Plan Additional Plan: continue diureis / monitor BUN- creatinine resume home meds consider renal dose dopamine if creatinine increases
--- NOTE | 2024-11-14 12:47 | PD.RESPRO ---
Documentation for date of: 11/14/24 Subjective Subjective Interval history: Patient was seen and examined bedside. Reported that he is following Dr. Mason for his heart failure. Stated that he is having lower extremity swelling extending up to the abdomen since 4 to 5 weeks which worsened over last 1 week. Also complaining of associated orthopnea, PND episodes. Currently on Bumex drip. Exam Vital Signs Temp Pulse Resp BP Pulse Ox O2 Del Method O2 Flow Rate 97.3 F 78 17 121/75 93 L Nasal Cannula 2 11/14/24 08:00 11/14/24 11:58 11/14/24 09:56 11/14/24 08:37 11/14/24 09:56 11/14/24 08:00 11/14/24 09:56 FiO2 98 11/13/24 17:35 Narrative Exam General: Awake. Sitting in the bed. HEENT: Normocephalic, atraumatic, mucous membranes moist. Heart: Irregular rate and rhythm, no murmurs. Lungs: Clear to auscultation with no wheezing or crackles. Abdomen: Soft, nondistended, nontender, positive bowel sounds. ?No guarding or rebound tenderness. Neurologic: Alert and oriented x3, no gross neurological deficit, and patient able to move all 4 extremities. Extremities: Bilateral lower extremity pitting pedal edema extending up to the lower abdomen Skin: No rash. Ecchymotic patches noted on upper extremities Objective Labs 11/15/24 04:50 11/15/24 04:50 Labs: Laboratory Results - last 24 hr 11/13/24 11/13/24 11/14/24 17:32 17:46 04:37 WBC 6.8 6.8 RBC 4.39 L 4.21 L Hgb 11.8 L 11.3 L Hct 37.3 L 36.0 L MCV 85 86 MCH 26.9 26.8 MCHC 31.6 31.4 RDW Std Deviation 60.1 H 61.0 H Plt Count 196 221 Neut % (Auto) 69 69 Lymph % (Auto) 17 15 [place] % (Auto) 10 12 Eos % (Auto) 4 3 Baso % (Auto) 1 1 Neut # (Auto) 4.6 4.7 Lymph # (Auto) 1.1 1.0 [place] # (Auto) 0.7 0.8 Eos # (Auto) 0.3 0.2 Baso # (Auto) 0.1 0.1 Immature Gran # (Auto) 0.02 H 0.03 H Absolute Nucleated RBC 0.00 0.00 Immature Gran % 0 0 Nucleated RBC % 0 0 PT 14.3 H INR 1.3 APTT 39.8 H Sodium 135 L 140 Potassium 4.0 3.1 L D Chloride 100 100 Carbon Dioxide 24.4 29.2 Anion Gap 11 11 BUN 30 H 31 H Creatinine 1.4 H 1.3 Estim Creat Clear Calc 53.4 L 57.5 L eGFR 52 L 57 L BUN/Creatinine Ratio 21 H 24 H Glucose [address] Glu mg/dL 114 Hemoglobin A1c 5.6 Calculated Osmolality 279 288 Calcium 8.6 8.8 Corrected Calcium 8.7 8.8 Phosphorus 4.0 Magnesium 2.4 Total Bilirubin 0.6 0.8 AST 20 12 ALT 11 9 L Alkaline Phosphatase 95 83 Troponin I 0.035 B-Natriuretic Peptide 1350 H* Total Protein 6.1 6.0 Albumin 3.9 4.0 Globulin 2.2 L 2.0 L Albumin/Globulin Ratio 1.8 2.0 Triglycerides 95 Cholesterol 130 L LDL Cholesterol, Calc 63 HDL Cholesterol 48 Cholesterol/HDL Ratio 2.7 L TSH 2.04 Ur Collection Type Clean Catch Urine Color Lt-Green A Urine Clarity Turbid A Urine pH 5.5 Ur Specific [place] 1.021 Urine Protein Negative Urine Glucose (UA) 4+ A Urine Ketones Negative Urine Blood Negative Urine Nitrite Negative Urine Bilirubin Negative Urine Urobilinogen (Auto) Negative Ur Leukocyte Esterase Negative Urine RBC 3 Urine WBC 2 Ur Squamous Epith Cells 0 Urine Bacteria None Ur Culture Indicated? Not Indicated Digoxin 1.0 Quality Measures Quality Measures none Advance care planning discussed with:: patient Assessment & Plan Assessment Current Active Medications: Generic Name Dose Route Start Last Admin Trade Name Freq PRN Reason Stop Dose Admin Acetaminophen 650 mg 11/13/24 20:19 Acetaminophen 325 Mg Tablet PO 12/13/24 20:18 Q6H PRN Pain 1-3 or Fever >100.3 Apixaban 5 mg 11/13/24 21:00 11/14/24 08:37 Apixaban 2.5 Mg Tablet PO 12/13/24 20:59 5 mg BID MARIO Administration Carvedilol 6.25 mg 11/13/24 21:00 11/14/24 08:37 Carvedilol 3.125 Mg Tablet PO 12/13/24 20:59 6.25 mg BID MARIO Administration Clopidogrel Bisulfate 75 mg 11/14/24 09:00 11/14/24 08:37 Clopidogrel Bisulfate 75 Mg Tablet PO 12/14/24 08:59 75 mg QDAY MARIO Administration Dextrose 25 ml 11/13/24 20:33 Dextrose 50%-Water Inj 50 Ml Syringe IV 12/13/24 20:32 Q15MIN PRN BG 50-70 responsive npo pt Dextrose 50 ml 11/13/24 20:33 Dextrose 50%-Water Inj 50 Ml Syringe IV 12/13/24 20:32 Q15MIN PRN BG <50 OR BG <70 & pt unresponsive Glucagon 1 mg 11/13/24 20:33 Glucagon Inj 1 Mg Vial IM Q15MIN PRN BG <70, and no IV access Bumetanide 20 mg/ IV 80 mls @ 2 mls/hr 11/13/24 20:39 11/13/24 22:30 Miscellaneous Supplies IV 11/14/24 20:38 0.5 mg/hr .Q24H MARIO 2 mls/hr Administration 0.5 MG/HR Insulin Glargine 10 unit 11/14/24 21:00 Insulin Glargine (Lantus) 5 Unit/0.05 Ml (Per 5 Units) SC 12/14/24 20:59 HS COUNT INCLUDES THE [facility] Insulin Human Lispro 0 unit 11/14/24 07:30 11/14/24 11:43 Insulin Lispro (Admelog) 1 Unit/0.01 Ml Unit SC 12/14/24 07:29 1 unit AC MARIO Administration Protocol Ondansetron HCl 4 mg 11/13/24 20:19 Ondansetron Inj 2 Mg/Ml Inj 2 Ml IV 12/13/24 20:18 Q6H PRN NAUSEA OR VOMITING Protocol Oxycodone/Acetaminophen 2 tab 11/14/24 04:27 11/14/24 10:59 Oxycodone/Apap 5/325 Tablet PO 11/19/24 04:26 2 tab Q6HR PRN Administration PAIN SCALE 4-10(Mod-Sev Potassium Chloride 20 meq 11/13/24 21:00 11/14/24 08:37 Potassium Chloride 10% 20 Meq/15 Ml Udc PO 12/13/24 20:59 20 meq BID MARIO Administration Sennosides 1 tab 11/13/24 20:29 Senna Tablet PO 12/13/24 20:28 BID PRN Constipation Protocol Plan he patient is a 79-year-old male with a past medical history of hypertension, diabetes, CHF, CKD stage IIIa, A-fib on Eliquis and digoxin presented to the ED on 11/13/2022 for 3-week history of progressive bilateral pitting edema. He is being admitted for management of acute decompensated heart disease. #Acute decompensated heart disease #Chronic hypoxic respiratory failure on oxygen and CPAP at night #History of CHF, EF 30% #Bilateral pitting edema The patient was with a 3-week history of progressive bilateral pitting edema, had his dose of Lasix increased from 40 mg to 80 mg without any significant improvement. In the last 3 weeks, he has gained about 40 pounds. He presented to [facility] a week ago and was given 160 mg of Lasix and discharged back to continue on home dose however edema is only getting worse. He also endorses exertional dyspnea with shortness of breath moving from the chair to the bed and sometimes at rest but denies cough or chest pain. The patient uses 2 L of oxygen facility and is not requiring any more in the ED. Labs significant for BNP of 1350, BUN of 30 and creatinine of 1.4. In the ED, infant toddler lead teacher Dr. Mason was consulted and recommended for the patient to be admitted for aggressive diuresis and started on Bumex drip Plan: -Admit to telemetry -IV Bumex 2mg and then, Continue IV Bumex 0.5 mg/h -Fluid restriction -Strict I&O's and daily weights -Replete potassium as necessary -Echocardiogram -[employer] Make Ready Worker consulted, appreciate recommendations #Hypokalemia Likely due to diuresis -Potassium on 11/14/2024 is 3.1 -60 mEq of oral potassium is given -Will continue to monitor electrolytes and replete accordingly. #History of diabetes The patient has a history of diabetes, last A1c done 4 months ago was 6.1. He uses insulin and Jardiance at home and Lantus 20units Admitting BS- 156 A1c as of 11/13/2024 is 5.6 Plan: -Sliding scale -Hypoglycemic protocols in place #History of A-fib with controlled ventricular rate Patient has a history of A-fib and is on Coreg, digoxin and Eliquis 5mg BID. EKG on admission showed AFib, rate controlled. Plan: -Resume Eliquis 5 Mg p.o. twice daily -Will continue carvedilol for now. Digoxin was held in view of CKD and hypokalemia. #History of CKD, stage IIIa The patient has a history of CKD and being followed by neurologist Dr. Park. On admission, BUN 30 and creatinine 1.4 with EGFR 52. Note: Patient takes methylene blue and it makes his urine green. 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 He is also on aspirin and Plavix for CAD status post stents about 2 months ago Plan: -Will continue dual antiplatelets and Eliquis as of now as recommended by Dr. Mason Health maintenance: Dispo: Tele Diet: Cardiac DVT: Eliquis Bain: In situ Lines: Peripheral Med Rec: Pending, f/u PT: Not ordered Code: Full Patient plan of care was discussed with the attending physician, Dr. Corey Newton, PGY1 Attending Provider Attestation/Addendum I reviewed labs, imaging, EKG, home medications and prior available records. Face to face evaluation was performed by me. I have personally examined the patient and discussed assessment and plan with the IM team. I reviewed the resident note and agree with the plan with exceptions as below. Acute hypoxic respiratory failure CHF exacerbation HFrEF EF 30% CKD stage IIIa Hypokalemia CAD status post NISHA Chronic A-fib Continue IV diuresis. He was started on Bumex drip Consulted cardiology recommended to continue IV diuresis Replete potassium and follow-up BMP Monitor kidney function. Avoid nephrotoxins. Renally dosed medications. Resume aspirin and Plavix. Resume Eliquis for A-fib. Discussed benefits versus risks of bleeding with cardiology
--- NOTE | 2024-11-14 15:11 | PC.NURSE ---
Notified that patients bumex gtt order is set to after current bag finishes infusing. Per provider they want the infusion to continue. Provider stated they would place orders
[2024-11-15] VITALS (11 sets, daily range): BP systolic 124–146; BP diastolic 76–79; PULSE 68–103; RESP 10–29; TEMP 35.8–36.1; O2SAT 88–99; BMI 37.6
[2024-11-15] MEDS: oxyCODONE/APAP 5/325 TABLET 2 TAB PO ×4 (00:01→20:26)
[2024-11-15 06:43] LABS: Alanine Aminotransferase 9 U/L (10-49); Albumin, Serum 3.8 gm/dL (3.4-4.8); Albumin/Globulin Ratio 1.8 (1.2-2.2); Alkaline Phosphatase 77 U/L (46-116); Anion Gap 8 (7-16); Aspartate Amino Transferase 11 U/L (0-34); BUN/Creatinine Ratio 19 Ratio (12-20); Bilirubin,Total 0.9 mg/dL (0.3-1.2); Blood Urea Nitrogen 27 mg/dL (9-23); Calcium 8.8 mg/dL (8.3-10.6); Carbon Dioxide 30.8 mMol/L (20.0-31.0); Chloride 101 mMol/L (98-107); Creatinine (Component) 1.4 mg/dL (0.6-1.3); Estimated Creatinine Clearance 53.7 mL/min (>60); Globulin 2.1 gm/dL (2.3-3.5); Glucose 153 mg/dL (74-106); Magnesium 2.3 mg/dL (1.6-2.6); Osmolality,Calculated 287 (275-295); Phosphorous 3.3 mg/dL (2.4-5.1); Potassium 3.5 mMol/L (3.4-5.1); Sodium 140 mMol/L (136-145); Total Protein 5.9 gm/dL (5.7-8.2); eGFR 52 See Note
[2024-11-15 07:20] LABS: Basophils % (Auto) 1 % (0-2.5); Eosinophils # (Auto) 0.2 Thou/mm3 (0.0-0.5); Eosinophils % (Auto) 3 % (0-10); Hematocrit 36.3 % (41.0-53.0); Immature Granulocytes % (Auto) 0 % (0-0); Immature Granulocytes Auto 0.03 Thou/mm3 (0.00-0.00); Lymphocytes % (Auto) 14 % (10-50); Mean Corpuscular HGB Conc 30.3 g/dl (31.0-37.0); Mean Corpuscular Hemoglobin 26.4 pg (25.0-35.0); Mean Corpuscular Volume 87 fL (80-100); Monocytes # (Auto) 0.7 Thou/mm3 (0.0-0.8); Monocytes % (Auto) 10 % (0-12); Neutrophils # (Auto) 5.3 Thou/mm3 (1.8-7.7); Neutrophils % (Auto) 73 % (37-80); Nucleated Red Blood Cell % 0 /100 WBC (0); Platelet Count 210 Thou/mm3 (140-440); Red Blood Count 4.17 Miln/mm3 (4.50-5.90); White Blood Count 7.3 Thou/mm3 (3.8-10.6)
[2024-11-15 07:52] LABS: B-Type Natriuretic Peptide 1042 pg/mL (0-100)
[2024-11-15] MEDS: POTASSIUM CHLORIDE 10% 20 MEQ/15 ML UDC PO ×2 (08:00→20:27)
[2024-11-15] MEDS: ASPIRIN EC 81 MG TABEC PO (08:00)
[2024-11-15] MEDS: APIXABAN 2.5 MG TABLET 5 MG PO ×2 (08:00→20:30)
[2024-11-15] MEDS: carVEDILOL 3.125 MG TABLET 6.25 MG PO ×2 (08:00→20:27)
[2024-11-15] MEDS: CLOPIDOGREL BISULFATE 75 MG TABLET PO (08:00)
[2024-11-15] MEDS: INSULIN LISPRO (AdmeLOG) 1 UNIT/0.01 ML UNIT SC ×3 (08:00→16:50)
--- NOTE | 2024-11-15 10:09 | ESPR_ITS ---
Documentation for date of: 11/15/24 Subjective Subjective Interval history: feels better creatinine 1.4 continue bumex drip fpr 24 more hours Exam Vital Signs Temp Pulse Resp BP Pulse Ox O2 Del Method O2 Flow Rate 96.7 F L 89 10 L 136/78 H 95 Nasal Cannula 2 11/15/24 04:00 11/15/24 08:00 11/15/24 07:05 11/15/24 08:00 11/15/24 07:05 11/15/24 04:00 11/15/24 07:05 FiO2 98 11/13/24 17:35 Routine HEENT Exam Head: Present normocephalic and atraumatic Eye: Present EOMI and PERRL ENT: Present mucous membranes moist Routine Neck Exam Neck: Present supple and trachea midline Routine Respiratory Exam Respiratory: Present chest non-tender, lungs clear, normal breath sounds and no resp distress Routine Cardiovascular Exam Cardiovascular: Present RRR Routine Abdominal Exam Abdominal: Present soft and normoactive bowel sounds Routine Extremities Exam Extremities: Present full ROM Routine Skin Exam Skin: Present intact, dry and warm Routine Neurological Exam Neurological: Present alert, oriented X3 and CN II-XII intact Routine Psychiatric Exam Psychiatric: Present normal affect and normal thought process Objective Labs 11/15/24 04:50 11/15/24 04:50 Labs: Laboratory Results - last 24 hr 11/15/24 04:50 WBC 7.3 RBC 4.17 L Hgb 11.0 L Hct 36.3 L MCV 87 MCH 26.4 MCHC 30.3 L RDW Std Deviation 62.0 H Plt Count 210 Neut % (Auto) 73 Lymph % (Auto) 14 [place] % (Auto) 10 Eos % (Auto) 3 Baso % (Auto) 1 Neut # (Auto) 5.3 Lymph # (Auto) 1.0 [place] # (Auto) 0.7 Eos # (Auto) 0.2 Baso # (Auto) 0.0 Immature Gran # (Auto) 0.03 H Absolute Nucleated RBC 0.00 Immature Gran % 0 Nucleated RBC % 0 Sodium 140 Potassium 3.5 Chloride 101 Carbon Dioxide 30.8 Anion Gap 8 BUN 27 H Creatinine 1.4 H Estim Creat Clear Calc 53.7 L eGFR 52 L BUN/Creatinine Ratio 19 Glucose 153 H Calculated Osmolality 287 Calcium 8.8 Corrected Calcium 9.0 Phosphorus 3.3 Magnesium 2.3 Total Bilirubin 0.9 AST 11 ALT 9 L Alkaline Phosphatase 77 B-Natriuretic Peptide 1042 H* Total Protein 5.9 Albumin 3.8 Globulin 2.1 L Albumin/Globulin Ratio 1.8 Assessment & Plan A&P Narrative improving continue bumex drip for 24 hours Time Spent With Patient Time: Total time spent is greater than 50% in coordination of care (as documented) at patient's floor/unit and/or counseling patient:
[2024-11-15] MEDS: BUMETANIDE INJ 10 MG in CONTAINER,EMPTY 50 ML 1 BAG 2 MG IV (11:01)
--- NOTE | 2024-11-15 11:11 | ESPR_ITS ---
Documentation for date of: 11/15/24 Subjective Subjective Interval history: Patient was seen and examined at bedside this AM. No acute events overnight. Dr. Mason is consulted for acute exacerbation of heart failure. Patient on Bumetanide gtt 0.5mg/h -5.5L since admission over the last 48 hours. Now on 1-2L oxygen via [place]. Symptoms of SOB and swelling have improved significantly. Will continue to monitor closely with strict I&Os and fluid restriction to 1500cc Patient tolerating diet, adequate urine output and mentation is at baseline. Cr increased from 13. -> 1.4, cardiology is aware, likely CKD stage III Exam Vital Signs Temp Pulse Resp BP Pulse Ox O2 Del Method O2 Flow Rate 96.7 F L 89 10 L 136/78 H 95 Nasal Cannula 2 11/15/24 04:00 11/15/24 08:00 11/15/24 07:05 11/15/24 08:00 11/15/24 07:05 11/15/24 04:00 11/15/24 07:05 FiO2 98 11/13/24 17:35 Narrative Exam Constitutional Alert, oriented x4 and comfortable HEENT Vision grossly intact. Patent nares. Trachea midline. On 2L NC, sats 94-96% Respiratory Chest normal on inspection and clear to auscultation bilaterally. Cardiovascular S1 and S2 audible, RRR. No murmurs or carotid bruit. No gross JVD. Abdominal Soft and non tender to palpation in all quadrants. BS + Genitourinary No bladder tenderness, no flank pain. Normal to palpation. Musculoskeletal Extremities tone within normal limits. 1+ LE edema, R>L. RT foot brace s/p amputation x3 weeks ago Neurological CN II - XII grossly intact. Extremity motor and sensation grossly intact. Skin Warm, dry and intact. No apparent lesions. Psychiatric Patient has a good affect, is cooperative. Objective Labs 11/15/24 04:50 11/15/24 04:50 Labs: Laboratory Results - last 24 hr 11/15/24 04:50 WBC 7.3 RBC 4.17 L Hgb 11.0 L Hct 36.3 L MCV 87 MCH 26.4 MCHC 30.3 L RDW Std Deviation 62.0 H Plt Count 210 Neut % (Auto) 73 Lymph % (Auto) 14 [place] % (Auto) 10 Eos % (Auto) 3 Baso % (Auto) 1 Neut # (Auto) 5.3 Lymph # (Auto) 1.0 [place] # (Auto) 0.7 Eos # (Auto) 0.2 Baso # (Auto) 0.0 Immature Gran # (Auto) 0.03 H Absolute Nucleated RBC 0.00 Immature Gran % 0 Nucleated RBC % 0 Sodium 140 Potassium 3.5 Chloride 101 Carbon Dioxide 30.8 Anion Gap 8 BUN 27 H Creatinine 1.4 H Estim Creat Clear Calc 53.7 L eGFR 52 L BUN/Creatinine Ratio 19 Glucose 153 H Calculated Osmolality 287 Calcium 8.8 Corrected Calcium 9.0 Phosphorus 3.3 Magnesium 2.3 Total Bilirubin 0.9 AST 11 ALT 9 L Alkaline Phosphatase 77 B-Natriuretic Peptide 1042 H* Total Protein 5.9 Albumin 3.8 Globulin 2.1 L Albumin/Globulin Ratio 1.8 Quality Measures Quality Measures none Advance care planning discussed with:: patient Assessment & Plan Assessment Current Active Medications: Generic Name Dose Route Start Last Admin Trade Name Freq PRN Reason Stop Dose Admin Acetaminophen 650 mg 11/13/24 20:19 Acetaminophen 325 Mg Tablet PO 12/13/24 20:18 Q6H PRN Pain 1-3 or Fever >100.3 Apixaban 5 mg 11/13/24 21:00 11/15/24 08:00 Apixaban 2.5 Mg Tablet PO 12/13/24 20:59 5 mg BID MARIO Administration Aspirin 81 mg 11/15/24 09:00 11/15/24 08:00 Aspirin Ec 81 Mg Tabec PO 12/15/24 08:59 81 mg QDAY MARIO Administration Carvedilol 6.25 mg 11/13/24 21:00 11/15/24 08:00 Carvedilol 3.125 Mg Tablet PO 12/13/24 20:59 6.25 mg BID MARIO Administration Clopidogrel Bisulfate 75 mg 11/14/24 09:00 11/15/24 08:00 Clopidogrel Bisulfate 75 Mg Tablet PO 12/14/24 08:59 75 mg QDAY MARIO Administration Dextrose 25 ml 11/13/24 20:33 Dextrose 50%-Water Inj 50 Ml Syringe IV 12/13/24 20:32 Q15MIN PRN BG 50-70 responsive npo pt Dextrose 50 ml 11/13/24 20:33 Dextrose 50%-Water Inj 50 Ml Syringe IV 12/13/24 20:32 Q15MIN PRN BG <50 OR BG <70 & pt unresponsive Glucagon 1 mg 11/13/24 20:33 Glucagon Inj 1 Mg Vial IM Q15MIN PRN BG <70, and no IV access Bumetanide 10 mg/ IV 40 mls @ 2 mls/hr 11/15/24 10:21 11/15/24 11:01 Miscellaneous Supplies IV 11/16/24 06:20 0.5 mg/hr .Q20H MARIO 2 mls/hr Administration 0.5 MG/HR Insulin Human Lispro 0 unit 11/14/24 07:30 11/15/24 08:00 Insulin Lispro (Admelog) 1 Unit/0.01 Ml Unit SC 12/14/24 07:29 1 unit AC MARIO Administration Protocol Ondansetron HCl 4 mg 11/13/24 20:19 Ondansetron Inj 2 Mg/Ml Inj 2 Ml IV 12/13/24 20:18 Q6H PRN NAUSEA OR VOMITING Protocol Oxycodone/Acetaminophen 2 tab 11/14/24 04:27 11/15/24 06:20 Oxycodone/Apap 5/325 Tablet PO 11/19/24 04:26 2 tab Q6HR PRN Administration PAIN SCALE 4-10(Mod-Sev Potassium Chloride 20 meq 11/13/24 21:00 11/15/24 08:00 Potassium Chloride 10% 20 Meq/15 Ml Udc PO 12/13/24 20:59 20 meq BID MARIO Administration Sennosides 1 tab 11/13/24 20:29 Senna Tablet PO 12/13/24 20:28 BID PRN Constipation Protocol Plan Mr Villareal is a 79-year-old male with a past medical history of hypertension, diabetes, CHF, CKD stage IIIa, A-fib on Eliquis and digoxin presented to the ED on 11/13/2022 for 3-week history of progressive bilateral pitting edema. He is being admitted for management of acute decompensated heart disease. 1. Acute hypoxic respiratory failure 2. Bilateral pitting edema secondary to 3. Acute decompensated heart failure, HFrEF 30% The patient presented with a 3-week history of progressive bilateral pitting edema, had his dose of Lasix increased from 40 mg to 80 mg without any significant improvement. He has gained about 40 pounds. Recently went to [facility] ED and was discharged with 160 mg of Lasix. He also endorses exertional dyspnea with shortness of breath moving from the chair to the bed and sometimes at rest but denies cough or chest pain. - The patient uses 2 L of oxygen facility and is not requiring any more in the ED. - BNP = 1350 - NYHA Class II at baseline - Balance : -5.5L over 48 hours sicne admission Plan: - Admit to telemetry - Cardiology Dr. Mason consulted, appreciate recommendations - On Bumex gtt 0.5mg/h x1 more day - Fluid restriction - Strict I&O's and daily weights - Follow up repeat Echocardiogram results 4. CKD stage III 5. Electrolyte imbalance - improved - Patient has a history of CKD and being followed by databases computer consultant Dr. Park - CKD stage IIIa : creatinine of 1.4 (baseline 1.3 - 1.4) and GFR 50-60 - Likely due to diuresis - Potassium 11/14 is 3.1 --> x1 of 60 mEq of oral potassium given on 11/15 --> K on 11/15 is 3.5 Plan: - Will continue to monitor electrolytes and replete accordingly. - Continue diuresis - Avoid nephrotoxic medications - Renally dose medications - Continue to monitor CMP 6. History of T2 diabetes mellitus - The patient has a history of diabetes, last A1c done 4 months ago was 6.1. - He uses insulin and Jardiance at home and Lantus 20units - Admitting BS- 156 - Hb A1c as of 11/13/2024 = 5.6% Plan: - Started normal insulin sliding scale with Accu-Checks - Hypoglycemia protocol in place - HbA1c ordered for a.m. draw - Day team to start insulin glargine - Advisable to prescribe continuous glucose monitor on discharge 7. History of A-fib with controlled ventricular rate 8. CAD status post stent Patient has a history of A-fib and is on Coreg, digoxin and Eliquis 5mg BID. EKG on admission showed AFib, rate controlled. Plan: - Resume Eliquis 5 Mg p.o. twice daily - Continue carvedilol 6.25 BID - Digoxin on HOLD, in view of CKD and intermittent hypokalemia. 9. Essential hypertension 10.History of peripheral arterial disease s/p SFA stenting s/p amputation of RT third and fifth toes Patient has a history of hypertension and is on Coreg 3.125 mg. He is also on aspirin and Plavix for CAD status post stents about 2 months ago Plan: -Will continue dual antiplatelets and Eliquis as of now as recommended by Dr. Mason Health maintenance: Dispo: Tele for CHF exacerbation, Cardiology following Diet: Cardiac + fluid restriction [id number] DVT: Eliquis 5mg BID Code: Full code Plan of care discussed with attending Bran Santos M.D. PGY2 Attending Provider Attestation/Addendum I reviewed labs, imaging, EKG, home medications and prior available records. Face to face evaluation was performed by me. I have personally examined the patient and discussed assessment and plan with the IM team. I reviewed the resident note and agree with the plan with exceptions as below. Acute hypoxic respiratory failure CHF exacerbation HFrEF EF 30% CKD stage IIIa Hypokalemia CAD status post NISHA Chronic A-fib Wean off oxygen as tolerated Continue IV diuresis. He was started on Bumex drip Consulted cardiology recommended to continue IV diuresis Replete potassium and follow-up BMP Monitor kidney function. Avoid nephrotoxins. Renally dosed medications. Resume aspirin and Plavix. Resume Eliquis for A-fib.
--- NOTE | 2024-11-15 15:21 | PD.ADDPROG ---
Addendum Progress Note Addendum Date of report being addended: 11/16/24 Narrative: I reviewed labs, imaging, EKG, home medications and prior available records. Face to face evaluation was performed by me. I have personally examined the patient and discussed assessment and plan with the IM team. I reviewed the resident note and agree with the plan with exceptions as below. Acute hypoxic respiratory failure CHF exacerbation HFrEF EF 30% CKD stage IIIa Hypokalemia CAD status post NISHA Chronic A-fib Wean off oxygen as tolerated Continue IV diuresis. He was started on Bumex drip Consulted cardiology recommended to continue IV diuresis Replete potassium and follow-up BMP Monitor kidney function. Avoid nephrotoxins. Renally dosed medications. Resume aspirin and Plavix. Resume Eliquis for A-fib.
--- NOTE | 2024-11-15 16:08 | PC.NURSE ---
Dressing change completed at 1500. Wound consult pending.
[2024-11-15 19:15] LABS: B-Type Natriuretic Peptide 1468 pg/mL (0-100)
[2024-11-16] VITALS (12 sets, daily range): BP systolic 107–129; BP diastolic 67–90; PULSE 70–104; RESP 16–24; TEMP 35.5–36.6; O2SAT 35–99; BMI 36.8; BMI 15.0
[2024-11-16] MEDS: ACETAMINOPHEN 325 MG TABLET 650 MG PO (00:12)
[2024-11-16] MEDS: BUMETANIDE INJ 10 MG in CONTAINER,EMPTY 50 ML 1 BAG 2 MG IV (02:28)
[2024-11-16] MEDS: oxyCODONE/APAP 5/325 TABLET 2 TAB PO ×3 (02:39→14:46)
[2024-11-16 06:12] LABS: Basophils # (Auto) 0.1 Thou/mm3 (0.0-0.2); Basophils % (Auto) 1 % (0-2.5); Eosinophils # (Auto) 0.2 Thou/mm3 (0.0-0.5); Eosinophils % (Auto) 3 % (0-10); Hematocrit 36.4 % (41.0-53.0); Hemoglobin 11.1 g/dL (13.5-16.0); Immature Granulocytes % (Auto) 0 % (0-0); Immature Granulocytes Auto 0.02 Thou/mm3 (0.00-0.00); Lymphocytes % (Auto) 17 % (10-50); Mean Corpuscular HGB Conc 30.5 g/dl (31.0-37.0); Mean Corpuscular Hemoglobin 26.9 pg (25.0-35.0); Mean Corpuscular Volume 88 fL (80-100); Monocytes # (Auto) 0.7 Thou/mm3 (0.0-0.8); Monocytes % (Auto) 12 % (0-12); Neutrophils # (Auto) 4.1 Thou/mm3 (1.8-7.7); Neutrophils % (Auto) 67 % (37-80); Nucleated Red Blood Cell % 0 /100 WBC (0); Platelet Count 185 Thou/mm3 (140-440); RDW Standard Deviation 62.4 fL (35.1-43.9); Red Blood Count 4.13 Miln/mm3 (4.50-5.90); White Blood Count 6.1 Thou/mm3 (3.8-10.6)
[2024-11-16 06:50] LABS: Alanine Aminotransferase 7 U/L (10-49); Albumin, Serum 3.7 gm/dL (3.4-4.8); Albumin/Globulin Ratio 1.8 (1.2-2.2); Alkaline Phosphatase 75 U/L (46-116); Anion Gap 9 (7-16); Aspartate Amino Transferase 13 U/L (0-34); BUN/Creatinine Ratio 18 Ratio (12-20); Bilirubin,Total 0.9 mg/dL (0.3-1.2); Blood Urea Nitrogen 21 mg/dL (9-23); Calcium 8.6 mg/dL (8.3-10.6); Calcium (Corrected) 8.8 mg/dL (8.5-10.1); Carbon Dioxide 26.9 mMol/L (20.0-31.0); Chloride 102 mMol/L (98-107); Creatinine (Component) 1.2 mg/dL (0.6-1.3); Globulin 2.1 gm/dL (2.3-3.5); Glucose 162 mg/dL (74-106); Magnesium 2.2 mg/dL (1.6-2.6); Osmolality,Calculated 282 (275-295); Phosphorous 3.5 mg/dL (2.4-5.1); Potassium 3.6 mMol/L (3.4-5.1); Sodium 138 mMol/L (136-145); Total Protein 5.8 gm/dL (5.7-8.2); eGFR > 60 See Note
[2024-11-16] MEDS: INSULIN LISPRO (AdmeLOG) 1 UNIT/0.01 ML UNIT SC ×3 (07:29→17:47)
--- NOTE | 2024-11-16 07:59 | PD.IMPROG ---
Documentation for date of: 11/16/24 Subjective Subjective Interval history: feels better creatinine imporved discharge planning in proress Exam Vital Signs Temp Pulse Resp BP Pulse Ox O2 Del Method O2 Flow Rate 96.7 F L 92 24 H 121/82 97 CPAP 2 11/16/24 04:00 11/16/24 07:05 11/16/24 07:05 11/16/24 04:00 11/16/24 07:05 11/16/24 04:00 11/16/24 07:05 FiO2 98 11/15/24 16:00 Routine HEENT Exam Head: Present normocephalic and atraumatic Eye: Present EOMI and PERRL ENT: Present mucous membranes moist Routine Neck Exam Neck: Present supple and trachea midline Routine Respiratory Exam Respiratory: Present chest non-tender, lungs clear, normal breath sounds and no resp distress Routine Cardiovascular Exam Cardiovascular: Present RRR Routine Abdominal Exam Abdominal: Present soft and normoactive bowel sounds Routine Extremities Exam Extremities: Present full ROM Routine Skin Exam Skin: Present intact, dry and warm Routine Neurological Exam Neurological: Present alert, oriented X3 and CN II-XII intact Routine Psychiatric Exam Psychiatric: Present normal affect and normal thought process Objective Labs 11/16/24 05:10 11/16/24 05:10 Labs: Laboratory Results - last 24 hr 11/15/24 11/15/24 11/16/24 04:50 17:34 05:10 WBC 6.1 RBC 4.13 L Hgb 11.1 L Hct 36.4 L MCV 88 MCH 26.9 MCHC 30.5 L RDW Std Deviation 62.4 H Plt Count 185 Neut % (Auto) 67 Lymph % (Auto) 17 [place] % (Auto) 12 Eos % (Auto) 3 Baso % (Auto) 1 Neut # (Auto) 4.1 Lymph # (Auto) 1.0 [place] # (Auto) 0.7 Eos # (Auto) 0.2 Baso # (Auto) 0.1 Immature Gran # (Auto) 0.02 H Absolute Nucleated RBC 0.00 Immature Gran % 0 Nucleated RBC % 0 Sodium 138 Potassium 3.6 Chloride 102 Carbon Dioxide 26.9 Anion Gap 9 BUN 21 Creatinine 1.2 Estim Creat Clear Calc 62.0 eGFR > 60 BUN/Creatinine Ratio 18 Glucose 162 H Calculated Osmolality 282 Calcium 8.6 Corrected Calcium 8.8 Phosphorus 3.5 Magnesium 2.2 Total Bilirubin 0.9 AST 13 ALT 7 L Alkaline Phosphatase 75 B-Natriuretic Peptide 1042 H* 1468 H* Total Protein 5.8 Albumin 3.7 Globulin 2.1 L Albumin/Globulin Ratio 1.8 Assessment & Plan A&P Narrative improving Time Spent With Patient Time: Total time spent is greater than 50% in coordination of care (as documented) at patient's floor/unit and/or counseling patient:
[2024-11-16] MEDS: carVEDILOL 3.125 MG TABLET 6.25 MG PO (08:49)
[2024-11-16] MEDS: CLOPIDOGREL BISULFATE 75 MG TABLET PO (08:50)
[2024-11-16] MEDS: ASPIRIN EC 81 MG TABEC PO (08:50)
[2024-11-16] MEDS: APIXABAN 2.5 MG TABLET 5 MG PO (08:50)
[2024-11-16] MEDS: Furosemide 40 MG TABLET PO (09:08)
[2024-11-16] MEDS: POTASSIUM CHLORIDE 10% 20 MEQ/15 ML UDC 40 MEQ PO (09:08)
--- NOTE | 2024-11-16 09:13 | PC.NURSE ---
Bumex drip stopped, switched to oral lasix
--- NOTE | 2024-11-16 10:16 | PC.SS ---
Patient is alert/oriented. 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 He can hear when you speak loudly and close to him. Patient admitted for heart disease. Patient states he resides with spouse and daughter. Patient states he was recently in and out of rehab in [place]. He was previously at [facility] and [facility]. Last SNF was [facility]. Patient states he does not have a bed hold. He is aware he used a lot of Medicare days. SS explained if he has no remaining days then it would most likely be out of pocket costs. SS will contact [facility] and [facility] inquiry through [employer]. Patient states he needs wound care and PT services. Patient uses 02 and has a CPAP and uses a rollator walker and electric wheelchair. Patient states he was admitted from home to hospital. He was following at [facility] and last appt. was last week. He also follows with Dr. Mason-Cardiology. D/c plan: SNF short term. is alt medical decision maker.
--- NOTE | 2024-11-16 13:48 | PC.SS ---
Follow up note: SS spoke to [facility] who is willing to accept patient for placement. Patient has d/c orders for today. Patient will need transportation
--- NOTE | 2024-11-16 13:53 | PD.ADDDSCHGE ---
Addendum Discharge Addendum Date of report being addended: 11/16/24 Narrative: I reviewed labs, imaging, EKG, home medications and prior available records. Face to face evaluation was performed by me. I have personally examined the patient and discussed assessment and plan with the IM team. I reviewed the resident note and agree with the plan with exceptions as below. Acute on chronic hypoxic respiratory failure CHF exacerbation HFrEF EF 30% CKD stage IIIa Hypokalemia CAD status post NISHA Chronic A-fib He is on his home oxygen dose about 2 L Will discharge on p.o. Lasix 40 mg twice daily. Close outpatient follow-up with cardiology Repeat BMP in 1 week Monitor kidney function in 1 week Continue aspirin and Plavix. Continue Eliquis for A-fib. Follow-up as outpatient with cardiology Time spent is 40 minutes. More than 50% of the time was spent on patient education and coordination of care.
--- NOTE | 2024-11-16 15:07 | PC.SS ---
Follow up note: Patient set up with MICHAEL due to insurance not covering. Patient no funds. [facility] transport for 5:30pm to [facility].
--- NOTE | 2024-11-16 17:06 | PC.NURSE ---
Report given to Adarsh MARTIN at [facility]
--- NOTE | 2024-11-16 18:42 | ESDS_ITS ---
<Statement entered by Bran Millard MD - 11/17/24 07:41> Patient was examined with the team including attending physician. Note reviewed, I agree with the discharge plan as documented. - Bran Millard M.D. PGY2 <Statement entered by Madisyn Mojica DO - 11/17/24 06:44> Senior attestation: Patient was examined and case was reviewed with team including attending physician. Note reviewed, I agree with most of its contents and agree with the patient's care. Madisyn Mojica DO PGY-3 Planned Discharge Date 11/16/24 DS: Providers Provider Date of admission: 11/13/24 20:19 Primary care physician: ANTHONY Self Admitting Provider: Chinedu El MD Attending Provider on Admission: Chinedu El MD Consults: 11/13/24 17:49 Consult to Nephrology Stat Comment: Acute exacerbation congestive heart failure Consulting Provider: Peter Mason 11/13/24 20:24 Consult to Cardiology Stat Comment: Consulting Provider: Peter Mason 11/14/24 08:00 Referral Wound Care Routine Comment: 11/15/24 07:25 Referral Physical Therapy Routine Comment: Physician Instructions: Attending Provider on DC: Kamilla Cody MD Discharging Provider: Eusebio Nicole MD DS: Diagnosis Problem List Completed Was Problem List Reviewed/Reconciled?: Yes Hospital Course Hospital Course Hospital course: Reason for hospitalization: Acute decompensated HF Ricardo Villareal is 79 yr male with PMH of hypertension, diabetes, CHF, CKD stage IIIa, A-fib on Eliquis and digoxin, s/p cardiac cath with stents, PAD s/p stent, 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 Patient was admitted for management of acute decompensated HF. He had initially presented to [facility] a week ago and was given 160 mg of Lasix. Subsequently was discharged back to [facility]. However, symptoms worsened with worsening SOB, 40 lb weight gain, orthopnea, and PND. 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 In ED, he was saturating adequately at 94% via 2 L NC. Chest x-ray revealed vascular congestion and superimposed pneumonia. Dr. Mason was consulted and patient was started on IV Bumex drip and admitted for further management of acute decompensated heart failure. During course of admission, pt was aggressively diuresed with net loss of -5.8 L since admission. Due to occasional hypokalemia, home digoxin was held. During stay, patient showed improvement of symptoms and reduced volume overload status. Digoxin was resumed and home Lasix dose reduced from 80 to 40 mg PO BID. He is now in stable condition and ready for discharge. Recommendations were given as below. Discharge Recommendations: Please follow up with PCP in 1-2 weeks after discharge. Schedule appointment with Cardiology Dr. Mason within 1 week from discharge. Continue all home medications as prescribed Reduced Lasix 80 -> 40 mg twice a day, as per cardiology recommendations Return to ED if symptoms worsen. Hospital Diagnoses: 1. Acute hypoxic respiratory failure-resolved 2. Bilateral pitting edema 3. Acute decompensated heart failure, HFrEF 30% 4. CKD stage III 5. Electrolyte imbalance-resolved 6. History of T2 diabetes mellitus 7. History of A-fib with controlled ventricular rate 8. CAD status post stent 9. Hx Essential hypertension 10.History of peripheral arterial disease The patient's management plan was discussed with my attending physician Dr. Nicole and seniors Dr. Mojica/Dr. Millard. Kamilla Cody MD, PGY-1 Time Spent with Patient Time attestation: Total time spent providing and/or coordinating discharge services: Time spent: Greater than 30 minutes Exam Vital Signs Temp Pulse Resp BP Pulse Ox O2 Del Method O2 Flow Rate 96.9 F 88 19 121/74 99 Nasal Cannula 2 11/16/24 16:00 11/16/24 17:46 11/16/24 16:00 11/16/24 17:46 11/16/24 16:00 11/16/24 16:00 11/16/24 16:00 FiO2 98 11/15/24 16:00 Narrative Exam Constitutional Alert, oriented x4 and comfortable HEENT Vision grossly intact. Patent nares. Trachea midline. On 1L NC, sats 94-96% Respiratory Chest normal on inspection and clear to auscultation bilaterally. Cardiovascular S1 and S2 audible, RRR. No murmurs or carotid bruit. No gross JVD. Abdominal Soft and non tender to palpation in all quadrants. BS + Genitourinary No bladder tenderness, no flank pain. Normal to palpation. Musculoskeletal Extremities tone within normal limits. 1+ LE edema, R>L. RT foot brace s/p amputation x3 weeks ago Neurological CN II - XII grossly intact. Extremity motor and sensation grossly intact. Skin Warm, dry and intact. No apparent lesions. Psychiatric Patient has a good affect, is cooperative. Discharge Plan Plan Patient Disposition: Xfer Skilled Nsg Fac (SNF) Disposition Comment: [facility] Patient condition on transfer: Stable Prescriptions/Referrals Prescriptions/Med Rec: New furosemide 40 mg tablet 40 mg PO BID 30 Days Qty: 60 0RF Continued potassium chloride 20 mEq Packet 20 meq PO BID oxycodone-acetaminophen 10-325 mg Tablet 1 tab PO Q6H PRN (Reason: Pain) folic acid 1 mg Tablet 1 mg PO QDAY aspirin 81 mg Tablet 81 mg PO QDAY digoxin 125 mcg (0.125 mg) Tablet 125 mcg PO QDAY Hold Instructions: Resume on 11/23/24. HOLD until follow up with cardiology sennosides [senna] 8.6 mg Tablet 8.6 mg PO BID PRN (Reason: Constipation) carvedilol [Coreg] 6.25 mg Tablet 6.25 mg PO BID Rx Instructions: must administer with a meal/food clopidogrel [Plavix] 75 mg Tablet 75 mg PO QDAY Eliquis 5 mg Tablet 5 mg PO BID Discontinued clopidogrel [Plavix] 75 MG tablet 75 mg PO QDAY Qty: 0 furosemide [Lasix] 80 mg Tablet 80 mg PO BID Referrals: Candy Clarke FNP [Primary Care Provider] - Patient/Caregiver Discharge Instructions Meds to Beds: Yes Discharge Activity: as per physical therapy and resume usual activities Other Discharge Activity Instructions:: Please follow up with PCP in 1-2 weeks after discharge. Schedule appointment with Cardiology Dr. Mason within 1 week from discharge. Continue all home medications as prescribed Reduced Lasix 80 -> 40 mg twice a day, as per cardiology recommendations Return to ED if symptoms worsen. Education Materials: Exercise for a Healthier Heart, Heart Failure Signs of Flare-Up Print Language: Peruvian Stand Alone Forms: [employer] Award Info., Patient Portal Info Letter Discharge Order Discharge Orders: Discharge (Routine); Ordered 11/16/24 Ordered By: Bran Millard Quality Discharge Quality Measures VTE prophylaxis Attestestation MD Attestation I reviewed labs, imaging, EKG, home medications and prior available records. Face to face evaluation was performed by me. I have personally examined the patient and discussed assessment and plan with the IM team. I reviewed the resident note and agree with the plan with exceptions as below. Please see my separate addendum for the same date of service
== END 2024-11-16 18:45 | disposition skilled nursing facility (03) | DRG 291 ==
LOC: SERX 20:27 → SERHOLD 20:40 → S2NX 11-14 03:20
PROVIDERS: Internal Medicine; Nurse Practitioner Family; Admitting Provider Internal Medicine; Emergency Provider Emergency Medicine; PCP Registered Nurse; Visit Provider Internal Medicine
DX: I13.0 Hypertensive heart and chronic kidney disease with heart failure and stage 1 through stage 4 chronic kidney disease, or unspecified chronic kidney disease (principal); I50.23 Acute on chronic systolic (congestive) heart failure; I48.20 Chronic atrial fibrillation, unspecified; N18.31 Chronic kidney disease, stage 3a; E11.22 Type 2 diabetes mellitus with diabetic chronic kidney disease; Z79.01 Long term (current) use of anticoagulants; Z95.5 Presence of coronary angioplasty implant and graft; E87.6 Hypokalemia; E11.51 Type 2 diabetes mellitus with diabetic peripheral angiopathy without gangrene; I25.10 Atherosclerotic heart disease of native coronary artery without angina pectoris
CPT/HCPCS: 36415; 71045; 80053; 80061; 80162; 81001; 83036; 83735; 83880; 84100; 84443; 84484; 85025; 85610; 85730; 87081; 87811; 93005; 93970; 96374; 97162; 99285; J1815; J3490; A9270

== ENCOUNTER → 2024-12-24 | Outpatient (CLI) | payer MEDICARE, BC, SELFPAY ==
[2024-12-24 17:36] LABS: Basophils % (Auto) 1 % (0-2.5); Eosinophils # (Auto) 0.2 Thou/mm3 (0.0-0.5); Eosinophils % (Auto) 3 % (0-10); Hematocrit 35.7 % (41.0-53.0); Hemoglobin 11.1 g/dL (13.5-16.0); Immature Granulocytes % (Auto) 0 % (0-0); Immature Granulocytes Auto 0.01 Thou/mm3 (0.00-0.00); Lymphocytes # (Auto) 0.9 Thou/mm3 (1.0-4.8); Lymphocytes % (Auto) 16 % (10-50); Mean Corpuscular HGB Conc 31.1 g/dl (31.0-37.0); Mean Corpuscular Hemoglobin 26.5 pg (25.0-35.0); Mean Corpuscular Volume 85 fL (80-100); Monocytes # (Auto) 0.5 Thou/mm3 (0.0-0.8); Monocytes % (Auto) 9 % (0-12); Neutrophils # (Auto) 3.9 Thou/mm3 (1.8-7.7); Neutrophils % (Auto) 71 % (37-80); Nucleated Red Blood Cell % 0 /100 WBC (0); Platelet Count 157 Thou/mm3 (140-440); Red Blood Count 4.19 Miln/mm3 (4.50-5.90); White Blood Count 5.4 Thou/mm3 (3.8-10.6)
[2024-12-24 17:44] LABS: INR 1.3 (0.9-1.3); Partial Thromboplastin Time 49.8 Seconds (22.0-36.0)
[2024-12-24 17:51] LABS: Anion Gap 11 (7-16); BUN/Creatinine Ratio 25 Ratio (12-20); Blood Urea Nitrogen 37 mg/dL (9-23); Calcium 9.4 mg/dL (8.3-10.6); Carbon Dioxide 32.5 mMol/L (20.0-31.0); Chloride 95 mMol/L (98-107); Creatinine (Component) 1.5 mg/dL (0.6-1.3); Glucose 180 mg/dL (74-106); Osmolality,Calculated 289 (275-295); Potassium 3.4 mMol/L (3.4-5.1); Sodium 138 mMol/L (136-145); eGFR 48 See Note
== END | disposition home or self-care (01) ==
PROVIDERS: Referring Provider Internal Medicine; Visit Provider Internal Medicine
DX: I25.10 Atherosclerotic heart disease of native coronary artery without angina pectoris (principal); I48.91 Unspecified atrial fibrillation
CPT/HCPCS: 36415; 80048; 85025; 85610; 85730

== ENCOUNTER → 2025-01-15 | Outpatient (CLI) | payer MEDICARE, BC, SELFPAY ==
[2025-01-15 15:15] LABS: Basophils % (Auto) 1 % (0-2.5); Eosinophils # (Auto) 0.2 Thou/mm3 (0.0-0.5); Eosinophils % (Auto) 2 % (0-10); Hematocrit 44.8 % (41.0-53.0); Hemoglobin 14.5 g/dL (13.5-16.0); Immature Granulocytes % (Auto) 0 % (0-0); Immature Granulocytes Auto 0.02 Thou/mm3 (0.00-0.00); Lymphocytes # (Auto) 1.2 Thou/mm3 (1.0-4.8); Lymphocytes % (Auto) 18 % (10-50); Mean Corpuscular HGB Conc 32.4 g/dl (31.0-37.0); Mean Corpuscular Hemoglobin 27.1 pg (25.0-35.0); Mean Corpuscular Volume 84 fL (80-100); Monocytes # (Auto) 0.6 Thou/mm3 (0.0-0.8); Monocytes % (Auto) 9 % (0-12); Neutrophils # (Auto) 4.6 Thou/mm3 (1.8-7.7); Neutrophils % (Auto) 70 % (37-80); Nucleated Red Blood Cell % 0 /100 WBC (0); Platelet Count 221 Thou/mm3 (140-440); Red Blood Count 5.36 Miln/mm3 (4.50-5.90); White Blood Count 6.6 Thou/mm3 (3.8-10.6)
[2025-01-15 15:20] LABS: INR 1.1 (0.9-1.3); Partial Thromboplastin Time 42.5 Seconds (22.0-36.0); Prothrombin Time 12.4 Seconds (9.0-12.2)
[2025-01-15 15:22] LABS: Anion Gap 11 (7-16); BUN/Creatinine Ratio 36 Ratio (12-20); Blood Urea Nitrogen 61 mg/dL (9-23); Calcium 9.9 mg/dL (8.3-10.6); Carbon Dioxide 33.6 mMol/L (20.0-31.0); Chloride 92 mMol/L (98-107); Creatinine (Component) 1.7 mg/dL (0.6-1.3); Glucose 141 mg/dL (74-106); Osmolality,Calculated 293 (275-295); Potassium 3.7 mMol/L (3.4-5.1); Sodium 137 mMol/L (136-145); eGFR 41 See Note
== END | disposition home or self-care (01) ==
LOC: COPL 13:58
PROVIDERS: PCP Registered Nurse; Referring Provider Internal Medicine; Visit Provider Internal Medicine
DX: I25.10 Atherosclerotic heart disease of native coronary artery without angina pectoris (principal); I48.91 Unspecified atrial fibrillation
CPT/HCPCS: 36415; 80048; 85025; 85610; 85730